=== PATIENT | male | born 1960 | race Caucasian/White ===

== ENCOUNTER 2025-07-20 09:14 | Outpatient (CLI) | payer OTHER, SELFPAY ==
--- NOTE | 2025-07-20 09:38 | ECG_ITS ---
Test Date: 2025-07-20 09:52:22 Measurements Intervals [place] Rate: 61 P: 41 HI: 164 QRS: 30 QRSD: 116 T: -10 QT: 394 QTc: 399 Interpretive Statements SINUS RHYTHM INCOMPLETE RIGHT BUNDLE BRANCH BLOCK DELAYED PRECORDIAL R/S TRANSITION CONSIDER INFERIOR INFARCT, AGE INDETERMINATE ABNORMAL ECG No previous ECG available for comparison Electronically Signed On 07-20-2025 09:56:58 CDT by Ronak Penny D.O.
--- OUTSIDE RECORDS SUMMARY | 2025-07-20 09:57 | XMS_ITS | Clinical Summary ---
Author Organization [facility] Address [address] [place] [address] Care Team Providers Care [employer] Operator Name Role Phone Ashly Chen MD Primary Care Provider + Source Comments [facility],non-owned Affiliates and Associated Physician Practices is amultiple site organization consisting of ambulatory clinics and hospital sitesin [place], [place], [place] and [place]. This disclosure is being madepursuant to the Care Everywhere program and may not contain all information available regarding this patient. Last updated 18.[facility] Allergies No known active allergies Medications * Be aware that medications may not be up to date on this document. Alwaysverify current medications with the patient. No known medications Active Problems No known active problems Encounters Date Type Department Care Team Description 05/16/2025 4:19 PM CDT - 05/16/2025 11:59 PM CDT Hospital Encounter [facility] Imaging Services - MRI [address] [place] [address] Chino Torres MD Discharge Disposition: Home or Self Care 05/04/2025 Travel from Last 3 Months Social History Tobacco Use Types Packs/Day Years Used Date Smoking Tobacco: Never Smokeless Tobacco: Never Alcohol Use Standard Drinks/Week Comments Yes 0 (1 standard drink = 0.6 oz pur e alcohol) occ Sex and Gender Information Value Date Recorded Sex Assigned at Not on file Legal Sex Male 10:32 AM CDT Gender Identity Not on file Sexual Orientation Not on file Last Filed Vital Signs Vital Sign Reading Time Taken Comments Blood Pressure 126/88 09/19/2015 8:45 AM MANAGER APPLE Pulse 64 09/04/2015 9:28 AM MANAGER APPLE Temperature 36.3 C (97.4 F) 09/04/2015 9:28 AM MANAGER APPLE Respiratory Rate 18 09/04/2015 9:28 AM MANAGER APPLE Oxygen Saturation 98% 09/04/2015 9:28 AM MANAGER APPLE Inhaled Oxygen Concentration - - Weight 106.1 kg (234 lb) 09/19/2015 8:45 AM MANAGER APPLE Height 182.9 cm (6') 09/04/2015 5:28 AM MANAGER APPLE Body Mass Index 31.74 09/04/2015 5:28 AM MANAGER APPLE Plan of Treatment Health Maintenance Due Date Last Done Comments COLOGUARD (AGES 45-75) - COL ON CA SCREENING 1962 CT COLONOGRAPHY - COLON CA SCREENING 1962 FIT - COLON CA SCREENING 1962 FLEX SIG - COLON CA SCREENING 1962 LIPID TESTING 1962 HIV SCREENING 1977 HEPATITIS C SCREENING 07/06/1980 DTAP/TDAP/TD VACCINES (1 - Tdap) 1981 PNEUMOCOCCAL VACCINE 50+ (1 of 1 - PCV) 2012 ZOSTER VACCINE (1 of 2) 2012 DEPRESSION SCREENING 09/21/2024 COVID-19 VACCINE (1 - 2023-2 5 season) 2025 INFLUENZA VACCINE (#1) 2025 COLON MONITORING 11/02/2033 11/02/2023 COLONOSCOPY - COLON CA SCREENING 11/02/2033 11/02/19 Colorectal Cancer Screening 11/02/2033 Respiratory Syncytial Virus (RSV) Vaccine Pt: or over 60 yrs (1 - 1-dose 75+ series) 2037 HEPATITIS B VACCINE Aged Out No longe r eligible based on patient's age to complete this topic HIB VACCINE Aged Out No longer eligi ble based on patient's age to complete this topic HPV VACCINE Aged Out No longer eligi ble based on patient's age to complete this topic MENINGOCOCCAL (Group B) VACC INE SHARED DECISION-MAKING Aged Out No longer eligibl e based on patient's age to complete this topic MENINGOCOCCAL GROUPS A/C/Y/W VACCINE Aged Out No longer eligible b ased on patient's age to complete this topic Procedures Procedure Name Priority Date/Time Associated Diagnosis Comments MRI KNEE LEFT WO CONTRAST Routine 05/16/2025 5:24 PM CDT Pain in joint of left knee from Last 3 Months Results * MRI Knee Left Wo Contrast (05/16/2025 5:24 PM CDT) Anatomical Region Laterality Modality Lower Extremity Magnetic Resonan ce 05/16/2025 5:26 PM CDT Impressions 05/16/2025 5:31 PM CDT IMPRESSION: 1.Tear of posterior horn of medial meniscus. There is no perimeniscal cyst. The root attachments are intact. 2.Multiple foci of subcortical marrow edema medial tibial plateau without fracture or other evidence of marrow edema. 3.A small popliteal cyst is intact. There is a small volume joint effusion. 4.No tendinous or ligamentous injury is identified. 5.Nonspecific minimal edema of Hoffa's fat pad. > Interpreting Provider: Daniel Merlos MD on 05/16/2025 5:31 PM Narrative 05/16/2025 5:31 PM CDT PROCEDURE: MRI KNEE LEFT WO CONTRAST DATE/TIME OF EXAM: 05/16/2025 5:24 PM CLINICAL INFORMATION: None relevant/not provided if blank. Indication: M25.562: Pain in joint of left knee EXAM: MRI LEFT KNEE WITHOUT INTRAVENOUS CONTRAST HISTORY: Pain in left knee. TECHNIQUE: MRI examination of the left knee was performed using multiple pulse sequences in multiple planes, without intravenous contrast. COMPARISON: None FINDINGS: The anterior and posterior cruciate ligaments are normal. The medial collateral ligament is normal. The iliotibial band, fibular collateral ligament, biceps femoris tendon, and popliteus tendon are normal. There is a tear of posterior horn of medial meniscus. There is no other evidence of tear of the medial or lateral menisci. The root attachments are intact. The articular cartilage in the medial, lateral, and patellofemoral compartments is normal, without thinning or defect. There is no fracture or dislocation The patella is positioned normally. The medial and lateral retinacula are intact. The quadriceps and patellar tendons are normal. There is minimal edema in Hoffa's fat pad. There are multiple small foci marrow edema of subcortical aspect of medial tibial plateau without osteochondral lesions. Marrow signal is otherwise normal. There is no fracture or dislocation. There is small volume of joint effusion. There is a small popliteal cyst partially draping the posterior aspect of medial femoral condyle measuring 0.6 x 2.0 x 2.7 cm in AP, transverse and cephalocaudal dimensions.. The muscles are normal in bulk and signal. The subcutaneous fat is normal without evidence of edema Procedure Note Daniel Merlos MD - 05/16/2025 PROCEDURE: MRI KNEE LEFT WO CONTRAST DATE/TIME OF EXAM: 05/16/2025 5:24 PM CLINICAL INFORMATION: None relevant/not provided if blank. Indication: M25.562: Pain in joint of left knee EXAM: MRI LEFT KNEE WITHOUT INTRAVENOUS CONTRAST HISTORY: Pain in left knee. TECHNIQUE: MRI examination of the left knee was performed usingmultiple pulse sequences in multiple planes, without intravenous contrast. COMPARISON: None FINDINGS: The anterior and posterior cruciate ligaments are normal. The medial collateral ligament is normal. The iliotibial band, fibular collateral ligament, biceps femoris tendon, and popliteus tendon are normal. There is a tear of posterior horn of medial meniscus. There is no other evidence of tear of the medial or lateral menisci. The root attachmentsare intact. The articular cartilage in the medial, lateral, and patellofemoral compartments is normal, without thinning or defect. There is no fractureor dislocation The patella is positioned normally. The medial and lateral retinaculaare intact. The quadriceps and patellar tendons are normal. There is minimal edema in Hoffa's fat pad. There are multiple small foci marrow edema of subcortical aspect ofmedial tibial plateau without osteochondral lesions. Marrow signal is otherwise normal. There is no fracture or dislocation. There is small volume of joint effusion. There is a small popliteal cyst partially draping the posterior aspect of medial femoral condylemeasuring 0.6 x 2.0 x 2.7 cm in AP, transverse and cephalocaudal dimensions.. The muscles are normal in bulk and signal. The subcutaneous fat is normal without evidence of edema IMPRESSION: 1.Tear of posterior horn of medial meniscus. There is no perimeniscalcyst. The root attachments are intact. 2.Multiple foci of subcortical marrow edema medial tibial plateauwithout fracture or other evidence of marrow edema. 3.A small popliteal cyst is intact. There is a small volume jointeffusion. 4.No tendinous or ligamentous injury is identified. 5.Nonspecific minimal edema of Hoffa's fat pad. > Interpreting Provider: Daniel Merlos MD on 05/16/2025 5:31 PM Chino Torres MD MR ORDERABLES Final Result from Last 3 Months Insurance [facility] Address: [facility] [id number] [place] [address] [facility] Care Teams [employer] Operator Relationship Specialty Start Date End Date Ashly Chen MD PCP - General Internal Medicine 10/19/12
[2025-07-20 10:21] LABS: Anion Gap 7 mmol/L (4-12); Blood Urea Nitrogen 13 mg/dL (9-20); Calcium 9.3 mg/dL (8.4-10.2); Carbon Dioxide 30 mmol/L (22-30); Chloride 101 mmol/L (98-107); Estimated Glomerular Filt Rate > 60; Glucose 96 mg/dL (65-110); Potassium 3.9 mmol/L (3.4-5.0); Sodium 138 mmol/L (137-145)
== END 2025-07-20 09:15 | disposition home or self-care (01) ==
PROVIDERS: Anesthesiology; Visit Provider Orthopaedic Surgery
DX: Z01.818 Encounter for other preprocedural examination (principal); I10 Essential (primary) hypertension; I45.10 Unspecified right bundle-branch block; R94.31 Abnormal electrocardiogram [ECG] [EKG]; Z79.899 Other long term (current) drug therapy
CPT/HCPCS: 36415; 80048; 93005

== ENCOUNTER 2025-08-02 00:17 | Day surgery (SDC) | payer OTHER, SELFPAY ==
[2025-07-19 14:25] VITALS: BMI 31.6
--- NOTE | 2025-07-19 14:35 | PC.NURSE ---
[facility] has started construction of its new state of the art ER which will open Spring 2026. With this, we anticipate parking may be a challenge for some our surgical patients and families. Parking spaces are limited but are available for all Surgical, obstetrics, and ER patients sharing this lot. If you arrive and find you are having a hard time finding a parking space, please note that we understand the challenges, please drive around the hospital and park near Hospital Entrance 1. When you enter this entrance, you can ask a volunteer to direct or take you back to the surgical waiting area to check in. We appreciate everyone?s understanding of these expected challenges while we build for your future. Report to the Outpatient Waiting Room, entrance under the green pavilion located off [address], at time __0600 on date __08/02/25 . Planned Procedure Time: __30 .? Time changes happen often and if your time is changed the preop area will call you the afternoon before. - You and your visitor will be asked to self-screen and do not enter if you have any COVID symptoms. Please call surgeon if you need to reschedule. - A mask is optional within the hospital at this time. Patients may have clear liquids (water, carbonated beverages, clear teas, apple juice) until 3 hours prior to surgery with a maximum of 20 ounces. - No food from midnight until time of surgery and no smoking, or chewing tobacco (or any form of nicotine). No chewing gum, candy or mints. - Infants may have breast milk until 4 hours before surgery, infant formula 6 hours prior to surgery. - Children will be allowed to drink immediately following surgery.? If applicable, please bring a bottle or sippy cup to assist with drinking. Juice, water, soda, and popsicles are readily available.? For infants on formula, please bring formula the day of surgery.? Pacifiers are allowed. Take only the following medications with a SIP of water on the morning of surgery: N/A DO NOT STOP ANY OF YOUR OTHER PRESCRIPTION MEDICATIONS PRIOR TO SURGERY EXCEPT THE FOLLOWING Hold all vitamins and supplements for 3 days per anesthesiologist. Medications to discontinue per physician __N/A Date to take last dose N/A Please no make-up, nail sinhala, hairspray, perfume, deodorant, or body powder the day of surgery.? No jewelry (including any body piercings) or valuables the day of surgery, leave them at home.? Please take a shower or bath the night before, or the morning of, surgery with an antibacterial soap.? Wear comfortable, loose fitting clothing.? Children are encouraged to wear pajamas. - Jewelry must be removed prior to entering the operating room.? Rings and piercings that are not removed may be cut off. - The hospital will not accept responsibility for valuables.? - Please leave all valuables, including medications, at home the day of surgery. If you are going home after surgery, a licensed hazmat cdl a driver must drive you home.? - NO public transportation without another adult if you receive anesthesia. - We recommend that an adult stay with you for 24 hours following discharge. - We also recommend that you do not drive, make important decision, drink alcoholic beverages, or take any drugs that were not prescribed by your health care provider for at least 24 hours after your discharge time. For Pediatric surgeries, we recommend two adults accompany the child home. Follow any additional instructions given to you from your surgeon. Telephone instructions given to __Sep and asked if any additional questions and then verbalized understanding. Patient advised to call surgeon office or pre surgery nurse liaison [phone] if any additional questions.
--- NOTE | 2025-07-27 08:02 | PM.IMHP ---
H&P: HPI History of Present Illness Date/Time: 07/27/25 08:02 Chief Complaint: Patient is knee pain left. He has catching locking and pain with any manipulation. He has mechanical-type symptoms. He has failed conservative treatment like to consider arthroscopic intervention for his meniscal tear. Review of Systems Musculoskeletal: Musculoskeletal: Reports arthralgias, Reports joint swelling and Reports stiffness Neurologic: Reports abnormal gait [facility] Social History Social History (Updated 05/23/25 @ 12:25 by Jennifer Bullock [facility]) Smoking packs per day: 0.5 Smoking cigarettes per day: 10.0 Years smoked: 4 Smoking pack-years: 2.00 Smoking status: Former smoker Tobacco type: cigarettes Smoking end date: 09/21/90 Alcohol intake: current Drinks per week: 9 Alcohol use details: 2-3 beers about 2-3 times per week Substance use: current Substance use type: marijuana Other substance usage details: Uses gummies occasionally Last use: 07/18/25 Lack of Transportation: No Lack of Food: Never True Current Housing: I Have Housing Concerned About Future Housing: No Difficulty Paying Gas/Electric Bills: No Difficulty Paying for Meds: No Currently Unemployed: No Education: Bachelor's Degree Difficulty w/ Childcare or Family Care: No Living arrangements: alone Spiritual care concerns: No Meds Home Medications and Allergies Home Medications ?Medication ?Instructions ?Recorded ?Confirmed ?Type hyaluronic acid 100 mg PO DAILY 07/19/25 07/19/25 History hydrochlorothiazide 12.5 mg tablet 12.5 mg PO DAILY 07/19/25 07/19/25 History epdrnkvpmoqy-[id number]-myswvk 1 tablet PO DAILY 07/19/25 07/19/25 History tablet (Multivitamin 50 Plus tablet) Allergies Allergy/AdvReac Type Severity Reaction Status Date / Time No Known Allergies Allergy Verified 07/19/25 14:18 Exam Narrative: On exam he is tender to palpation medially has catching locking and pain with manipulation. Neurologically he is intact. He has a positive Keegan's and pain to motion. He walks with an antalgic gait. Eyes: General: appearance normal, both eyes and all related structures Neck: Neck: supple Resp: Effort & Inspection: normal respiratory effort Cardio: Rate: regular rate Rhythm: regular rhythm Knee X-Ray 05/04/25 Orthopedics Result Report 05/04/25 Assessment and Plan Assessment and plan (1) Acute medial meniscus tear of left knee: Code(s): S83.242A - Other tear of medial meniscus, current injury, left knee, initial encounter Status: Acute Assessment and Plan: Patient presents medial meniscal tear left. He has failed conservative treatment like to consider arthroscopic intervention. I discussed the risks, benefits, limitations, and alternatives the patient in detail. He understands and agrees will proceed with arthroscopy partial meniscectomy proceed as indicated. The MRI shows a complex tear of the posterior part of the medial meniscus.
[2025-08-02] VITALS (9 sets, daily range): BP systolic 116–129; BP diastolic 82–88; PULSE 52–74; RESP 12–20; TEMP 36.2–36.6; O2SAT 94–100
[2025-08-02] MEDS: LACTATED RINGERS 1,000 ML 30 ML IV CONT ×2 (06:30→08:12)
--- NOTE | 2025-08-02 06:31 | WPDANESEPPF ---
Anes - Initial Pre Proc Eval Procedure: Operation Date: 08/02/25 07:30 Proposed Procedures p Left Knee Arthroscopy, Partial Medial Meniscectomy, Proceed As Indicated - Chino Torres MD Date/Time: 08/02/25 06:31 Surgeon: Chino Torres MD Pre Op Diagnosis: Lt Med Meniscal tear Patient Data Age: 65 Gender: M Height: 1.82 m Weight: 104.33 kg Allergies Allergy/AdvReac Type Severity Reaction Status Date / Time No Known Allergies Allergy Verified 07/19/25 14:18 Home Medications ?Medication ?Instructions ?Recorded ?Confirmed ?Type hyaluronic acid 100 mg PO DAILY 07/19/25 07/19/25 History hydrochlorothiazide 12.5 mg tablet 12.5 mg PO DAILY 07/19/25 07/19/25 History [id number]-gmbxzhwl-imkbac 1 tablet PO DAILY 07/19/25 07/19/25 History tablet (Multivitamin 50 Plus tablet) Patient hx anesthesia problems: none Family hx anesthesia problems: none Results Review: All pre-operative results and documents have been reviewed as part of the pre-operative evaluation. [facility] Past Medical History Medical History (Updated 08/02/25 @ 06:31 by Martin Rushing MD) Obesity HTN (hypertension) BK (obstructive sleep apnea) Social History Social History Smoking packs per day: 0.5 Smoking cigarettes per day: 10.0 Years smoked: 4 Smoking pack-years: 2.00 Smoking status: Former smoker Tobacco type: cigarettes Smoking end date: 09/21/90 Alcohol intake: current Drinks per week: 9 Alcohol use details: 2-3 beers about 2-3 times per week Substance use: current Substance use type: marijuana Other substance usage details: Uses gummies occasionally Last use: 07/18/25 Lack of Transportation: No Lack of Food: Never True Current Housing: I Have Housing Concerned About Future Housing: No Difficulty Paying Gas/Electric Bills: No Difficulty Paying for Meds: No Currently Unemployed: No Education: Bachelor's Degree Difficulty w/ Childcare or Family Care: No Living arrangements: alone Spiritual care concerns: No Anes - Eval Final PreProcedure Day of Procedure 08/02/25 06:31 Patient weight: obese Heart: regular rate and rhythm Lungs: clear to auscultation Airway: Mallampati scale class II Neurological: alert and oriented Last oral intake: >/= 8 hours ASA classification: III Emergent: no Anesthetic plan: proceed Anesthesia type and monitoring: general LMA and standard monitoring Results Review: All pre-operative results and documents have been reviewed as part of the pre-operative evaluation. Informed Consent: The patient's anesthetic plan and its attendant risks and benefits were discussed with the patient/family/POA. Questions were solicited and answers provided to the satisfaction of the patient/family/POA.
--- NOTE | 2025-08-02 06:46 | WPDHPUPDATE1 ---
History and Physical Update Update Date/Time: 08/02/25 06:46 History and Physical has been reviewed, including an updated exam of the patient. There are NO changes in the patient's condition. Risks, benefits, and alternatives have been discussed and questions answered. Patient agrees to proceed with procedure. Will proceed with arthroscopy, partial meniscectomy, proceed as indicated. Patient understands that this will not address any arthritis.
[2025-08-02] MEDS: KETOROLAC 15 MG/ML VIAL (*BKC) IV PUSH (07:00)
[2025-08-02] MEDS: ACETAMINOPHEN 500 MG TABLET 1000 MG PO (07:00)
[2025-08-02] MEDS: ceFAZolin 2 GM in SODIUM CHLORIDE 0.9% IV 50 ML 100 ML IVPB (07:28)
[2025-08-02] MEDS: LIDO 1%/EPINEPHRINE 1:100,000 20 ML VIAL 50 ML INFILTRATE (07:53)
--- NOTE | 2025-08-02 08:03 | W.PM.PROC2 ---
Procedure Note - Detailed Date of Procedure 08/02/25 Pre-op Diagnosis LEFT Medial Meniscal tear Post-op Diagnosis Same Procedure Performed LEFT knee arthroscopy with partial meniscectomy Surgeon Chino Torres MD Anesthesia General Indications Pain, Locking and Catching Description of Procedure Patient brought to operating room # 6. An anesthetic was administered. The knee was sterilely prepped and draped in the usual manner. Standard portals were used. Superior medial portal was used for the outflow cannula, inferior lateral portal was used for the scope, inferior medial portal was used for the instruments. Arthroscopy was performed, the patellar femoral joint degenerative changes. The medial compartment showed a complex tear. The lateral compartment showed fraying. The ACL was intact. Using baskets and jeison the meniscal tear was trimmed back to a stable base so the nothing further could be pulled into the joint. Any loose or delaminated fragments were gently trimmed to a stable base. At this point the instruments were withdrawn, sutures placed and patient left the operating room in satisfactory condition. 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
== END 2025-08-02 10:01 | disposition home or self-care (01) ==
PROVIDERS: Visit Provider Orthopaedic Surgery
PROC: (CPT 29870; principal; 2025-08-02 07:30)
DX: M23.332 Other meniscus derangements, other medial meniscus, left knee (principal); M22.42 Chondromalacia patellae, left knee
CPT/HCPCS: 29881; J0690; A9270; J1200; J1885; J2004; J2250; J2405; J2704; J3010; J7120